=== PATIENT | female | born 1950 | race Caucasian/White ===

== ENCOUNTER 2019-07-11 06:18 | Day surgery (SDC) | payer BC, MEDICARE ==
[2019-07-10 09:29] VITALS: BMI 32.5
[~2019-07-11 06:18] MED LIST: DEXAMETHASONE SOD PHOSPHATE 10 MG/ML 1 ML VIAL IV ONE; HYDROmorphone 0.5 MG/0.5 ML SYRINGE IVP PRN; LACTATED RINGERS 1,000 ML IV SCH; ONDANSETRON 4 MG/2 ML VIAL IVP ONE; ONDANSETRON 4 MG/2 ML VIAL IVP PRN
[2019-07-11 07:06] VITALS: RESP 16; TEMP 98.1
[2019-07-11] MEDS ORDERED: LIDOCAINE 1% 20 ML VIAL (10MG/ML) FOR IV START INTRADERMA ONE (07:23)
[2019-07-11] MEDS ORDERED: KETAMINE 10 MG/ML 20 ML VIAL ONE (07:57)
[2019-07-11] MEDS ORDERED: MIDAZOLAM 2 MG/2 ML VIAL ONE (07:57)
[2019-07-11] MEDS ORDERED: LIDOCAINE 1% INJ 10MG/ML (20 ML MDV) ONE (07:57)
[2019-07-11] MEDS ORDERED: PROPOFOL 10 MG/ML 20 ML VIAL IV ONE (07:57)
[2019-07-11] MEDS ORDERED: fentaNYL (PF) 50 MCG/ML 2 ML AMP ONE (07:57)
[2019-07-11] MEDS ORDERED: LIDOCAINE 2% INJ 20 MG/ML SQ ONE ×2 (08:26)
[2019-07-11] MEDS ORDERED: BUPIVACAINE (PF) 0.5% 30 ML VIAL SQ ONE ×2 (08:26)
--- NOTE | 2019-07-11 09:05 | P.OP ---
Date of Procedure: 07/11/19 Postoperative Diagnosis: Right moderate to severe hallux rigidus Procedure(s) Performed: Same Implants: Implant arthroplasty first MTP joint, right foot Anesthesia: other (Sedation and local) Surgeon: Nixon Fletcher Chairman And Ceo #1: Isa Archer Estimated Blood Loss (ml): 5 IV fluids (ml): 500 Pathology: none sent Condition: stable Disposition: PACU Indications for Procedure: The patient is a very pleasant 69-year-old female who has had a long-standing history of problems with her right first MTP joint. Clinically she had a large dorsal osteophyte over the distal first metatarsal and pain with passive range of motion of the joint including pain with a grind test. Her x-rays showed moderate to severe arthritis. She was initially managed nonoperatively but failed to improve with conservative treatment. After failing over 6 months of nonsurgical treatment the patient requested surgery. Due to the fact that she had pain to her arc of range of motion particularly with grind test we discussed that she would not be a candidate for simple he performing a cheilectomy. We discussed both fusion and implant arthroplasty. We discussed the pros and cons of both treatments. We also discussed the recent orthopedic literature showing comparable outcomes 5 years with both procedures. The patient had a mild hallux valgus deformity but this was only minimally bothersome for her. She requested implant arthroplasty using Cartiva. She is well aware of the limitations of this. We discussed potential risks and complications of surgery including but not limited to risks from anesthesia, superficial infection, deep infection, delayed wound healing, superficial wound necrosis, deep wound necrosis, continued or worsened pain, worsening deformity, implant subsidence, dissatisfaction with surgery, need for further surgery including implant removal and fusion, DVT, PE, other medical complications, and possibly loss of life or limb. The patient voiced her understanding of all these are the most common complications other less common complications are possible. She provided her verbal and written consent to go forward with surgery. Operative Findings: The patient had complete cartilage loss from the first metatarsal head and large dorsal osteophytes off the distal first metatarsal and proximal phalanx base. Description of Procedure: The patient was identified in preoperative holding and the correct right leg was marked with my initials. I reviewed the consent form with the patient and her . All of their questions were answered. The patient was then brought back to the operating room by anesthesia. She was positioned on the OR table where a general anesthetic and preoperative antibiotics were given. All bony prominences were well-padded. The right leg was then prepped and draped in the standard sterile fashion after a tourniquet was applied to the proximal aspect of the right thigh. A timeout was performed identifying the correct patient, operative extremity, and procedure. A digital block was then performed using a mixture of half percent Marcaine and 2% lidocaine both without epinephrine. The leg was then elevated, exsanguinated with an Esmarch bandage, and the tourniquet was inflated to 250 mmHg. I began by marking out a straight dorsal incision to the first MTP joint. Skin incision was made with a scalpel and dissection was carried down carefully through the subcutaneous tissue taking care to not undermine the skin edges. The EHL tendon sheath was incised and the tendon was retracted laterally. The capsule over the first MTP joint was incised longitudinally. There was abundant inflamed synovium which was sharply excised. The joint was circumferentially exposed to allow full access to the metatarsal head. There was a large dorsal osteophyte over the first metatarsal which was carefully contoured with a rongeur. A paper cone maker was used to size the remaining first metatarsal head which was completely devoid of articular cartilage. The patient's anatomy seemed to better fit an 8 mm plug which was then dispensed. The guide was placed centrally over the first metatarsal head and a K wire was driven down the central aspect of the metatarsal. A reamer was used to carefully create a path over the K wire. The reamer and the K wire were removed. Deep appeared cavity was inspected and found to have a nice stable bony rim and was centrally located within the first metatarsal. The wound was thoroughly irrigated. An 8 mm Cartiva implant was then placed in the introducer sleeve. The final implant was then carefully press-fit into the bony cavity. The implant appeared to be stable and was sitting 2-3 mm proud. The wound was then thoroughly irrigated. The capsule was closed with a running 3-0 Monocryl stitch. The deep subcu was reapproximated using interrupted 3-0 Monocryl. The skin was closed using 3-0 nylon horizontal mattress stitches. The skin was reinforced with Brown quarter inch stretchy Steri-Strips. A sterile dressing consisting of Betadine soaked Adaptic, 4 x 4, and web roll was applied followed by an Sulaiman wrap. The tourniquet was let down. The patient was then transferred from the OR table to a gurney and brought to recovery having tolerated the procedure well. Plan: The patient is going to discharge home as an outpatient. She can weight- bear as tolerated in a boot. She can change her dressing in 2 days. She will need follow-up in the office in 2 weeks for wound check and likely suture removal of her incision is healed. She does not need x-rays at her 2 week visit.
[2019-07-11] MEDS ORDERED: HYDROcodone/APAP 5-325MG 1 EACH TAB PO ONE (09:35)
[2019-07-11 09:56] VITALS: BP 137/71; PULSE 73
== END 2019-07-11 10:28 | disposition home or self-care (01) ==
LOC: OR 06:18
PROVIDERS: ATTEND Orthopaedic Surgery
DX: M20.21 Hallux rigidus, right foot (principal); M19.071 Primary osteoarthritis, right ankle and foot; M19.072 Primary osteoarthritis, left ankle and foot; M20.22 Hallux rigidus, left foot; G47.33 Obstructive sleep apnea (adult) (pediatric); E78.00 Pure hypercholesterolemia, unspecified; F32.9 Major depressive disorder, single episode, unspecified; F39 Unspecified mood [affective] disorder; Z99.89 Dependence on other enabling machines and devices; Z91.040 Latex allergy status; Z98.890 Other specified postprocedural states; Z79.899 Other long term (current) drug therapy; Z88.8 Allergy status to other drugs, medicaments and biological substances; Z91.048 Other nonmedicinal substance allergy status; Z85.3 Personal history of malignant neoplasm of breast; Z97.3 Presence of spectacles and contact lenses; Z98.41 Cataract extraction status, right eye; Z98.42 Cataract extraction status, left eye; Z82.49 Family history of ischemic heart disease and other diseases of the circulatory system
CPT/HCPCS: 28291; C1713; J2001 ×2; J2250; J1100; J0690; J2405; J3010; J2704

== ENCOUNTER → 2019-07-29 | Outpatient (CLI) | payer MEDICARE ==
--- NOTE | 2019-08-02 12:31 | MM ---
Reason for exam: screening (asymptomatic). Last mammogram was performed 2 years and 1 month ago. History: Patient is postmenopausal and has history of breast cancer at age 63. Family history of premenopausal breast cancer in cousin, premenopausal breast cancer in sister, and breast cancer in grandmother. Malignant left mammotome panel of the left breast, May 03, 2013. Took estrogen for 3 years 5 months. Took progesterone for 3 years 5 months. Physical Findings: A clinical breast exam by your physician is recommended on an annual basis and results should be correlated with mammographic findings. MG 3D Screening Mammo W/Cad Bilateral CC and MLO view(s) were taken. Prior study comparison: July 03, 2017, mammogram, performed at [facility]. April 25, 2013, [facility] DIGITAL LEFT BREAST MAMMOGRAM w/CAD. April 23, 2013, bilateral digital screening mammo w/CAD. There are scattered fibroglandular densities. Finding #1: Architectural distortion in the lower quadrant, middle position of the left breast consistent with known excisional biopsy changes. Finding #2: There are typically benign round, diffuse/scattered calcifications in both breasts. There is no discrete abnormality. ASSESSMENT: Benign, BI-RAD 2 RECOMMENDATION: Routine screening mammogram of both breasts in 1 year.
== END | disposition home or self-care (01) ==
LOC: RADMAMWWP 13:35
PROVIDERS: ATTEND Internal Medicine
DX: Z12.31 Encounter for screening mammogram for malignant neoplasm of breast (principal)
CPT/HCPCS: 77063; 77067

== ENCOUNTER → 2020-07-01 | Outpatient (CLI) | payer MEDICARE ==
[2020-07-01 19:22] LABS: Protein, Total 6.4 g/dL (6.2-8.2)
[2020-07-01 19:38] LABS: Anti-Smith Ab Interp NEGATIVE (NEGATIVE)
[2020-07-06 12:32] LABS: Albumin 4.02 g/dL (3.80-4.90); Gamma Globulin 0.77 g/dL (0.70-1.50)
[2020-07-06 19:33] LABS: Arsenic Whole Blood <3 mcg/L (< 23); Mercury Whole Blood <2 mcg/L (< 11)
== END | disposition home or self-care (01) ==
LOC: LABWHC1 12:16
PROVIDERS: ATTEND Psychiatry & Neurology Neurology
DX: G62.9 Polyneuropathy, unspecified (principal); R76.8 Other specified abnormal immunological findings in serum
CPT/HCPCS: 36415; 82175; 82570; 82607; 83655; 83825; 84165; 85652; 86038; 86235; 86618

== ENCOUNTER → 2020-08-04 | Outpatient (CLI) | payer MEDICARE ==
--- NOTE | 2020-08-05 14:38 | MM ---
Reason for exam: screening (asymptomatic). Last mammogram was performed 1 year ago. History: Patient is postmenopausal and has history of breast cancer at age 63. Family history of premenopausal breast cancer in cousin, premenopausal breast cancer in sister, and breast cancer in grandmother. Malignant left mammotome panel of the left breast, May 03, 2013. Took estrogen for 3 years 5 months. Took progesterone for 3 years 5 months. Physical Findings: A clinical breast exam by your physician is recommended on an annual basis and results should be correlated with mammographic findings. MG 3D Screening Mammo W/Cad Bilateral CC and MLO view(s) were taken. Prior study comparison: July 29, 2019, bilateral MG 3d screening mammo w/cad. There are scattered fibroglandular densities. There are benign appearing diffuse, round calcifications bilaterally. No significant changes when compared with prior studies. ASSESSMENT: Benign, BI-RAD 2 RECOMMENDATION: Routine screening mammogram of both breasts in 1 year.
== END | disposition home or self-care (01) ==
LOC: RADMAMWWP 08:58
PROVIDERS: ATTEND Internal Medicine
DX: Z12.31 Encounter for screening mammogram for malignant neoplasm of breast (principal)
CPT/HCPCS: 77063; 77067

== ENCOUNTER → 2021-09-09 | Outpatient (CLI) | payer MEDICARE ==
--- NOTE | 2021-09-09 15:25 | BD ---
EXAMINATION TYPE: Axial Bone Density DATE OF EXAM: 09/09/2021 COMPARISON: 2013 CLINICAL HISTORY: Postmenopausal screening Height: 5 FT 4 IN Weight: 184 FRAX RISK QUESTIONS: Alcohol (3 or more units per day): NO Family History (Parent hip fracture): NO Glucocorticoids (More than 3mos): NO (Ex: prednisone, prednisolone, methylprednisolone, dexamethasone, and hydrocortisone). History of Fracture in Adulthood: NO Secondary Osteoporosis: 1. Type 1 Diabetes: NO 2. Hyperthyroidism: NO 3. Menopause before 45: NO 4. Malnutrition: NO 5. Chronic liver disease: NO Rheumatoid Arthritis: NO Current Tobacco Use: NO RISK FACTORS HISTORY OF: Surgery to Spine/Hip(right/left)/Wrist (right/left): NO Family History of Osteoporosis: NO Active: YES Diet low in dairy products/other sources of calcium: NO Postmenopausal woman: YES If Premenopausal, do you have irregular periods: NO Take estrogen and/or progesterone medications: NONE NOW Lost more than 2 inches in height since high school: NO Frequent falls: NO Poor Health: GOOD Hyperparathyroidism: NO Adrenal Insufficiency: NO MEDICATIONS: Additional Medications: ELVIN DELEON, Additional History: BREAST CANCER AGE 63 RADIATION EXAM MEASUREMENTS: Bone mineral densitometry was performed using the [employer] Your Head System. Bone mineral density as measured about the Lumbar spine is: ----- L1-L4(G/cm2): 1.478 T Score Values are as follows: ----- L2: 1.8 ----- L3: 2.6 ----- L4: 4.7 ----- L1-L4: 2.5 Bone mineral density has: INCREASED 2.9 % since study of: 2013 Bone mineral density about the R hip (g/cm2): 0.991 Bone mineral density about the L hip (g/cm2): 0.982 T Score values are as follows: -----R Neck: -0.3 -----L Neck: -0.4 -----R Total: 0.8 -----L Total: 1.1 Bone mineral density has: DECREASED -0.8 % since study of: 2013 IMPRESSION: Normal (Values between +1 and -1 indicate normal bone mass). Consider repeating this study in 5 year s or sooner if there is some new clinical indication. NOTE: T-SCORE=SD OF THE YOUNG ADULT MEAN.
--- NOTE | 2021-09-10 09:23 | MM ---
Reason for exam: screening (asymptomatic). Last mammogram was performed 1 year and 1 month ago. History: Patient is postmenopausal and has history of breast cancer at age 63. Family history of premenopausal breast cancer in cousin, premenopausal breast cancer in sister, and breast cancer in grandmother. Malignant left mammotome panel of the left breast, May 03, 2013. Radiation therapy of the left breast, 2012. Took estrogen for 3 years 5 months. Took progesterone for 3 years 5 months. Physical Findings: A clinical breast exam by your physician is recommended on an annual basis and results should be correlated with mammographic findings. MG 3D Screening Mammo W/Cad Bilateral CC, MLO, and XCCL view(s) were taken. Prior study comparison: August 04, 2020, bilateral MG 3d screening mammo w/cad. July 29, 2019, bilateral MG 3d screening mammo w/cad. There are scattered fibroglandular densities. Stable benign calcifications. There is no discrete abnormality. No significant changes when compared with prior studies. ASSESSMENT: Benign, BI-RAD 2 RECOMMENDATION: Routine screening mammogram of both breasts in 1 year.
== END | disposition home or self-care (01) ==
LOC: RADBDWWP 14:24
PROVIDERS: ATTEND Internal Medicine
DX: Z12.31 Encounter for screening mammogram for malignant neoplasm of breast (principal); N95.8 Other specified menopausal and perimenopausal disorders
CPT/HCPCS: 77063; 77067; 77080

== ENCOUNTER → 2023-10-19 | Outpatient (CLI) | payer MEDICARE ==
--- NOTE | 2023-10-23 00:09 | MM ---
Reason for Exam: Screening (asymptomatic). Last mammogram was performed 1 year(s) and 1 month(s) ago. Patient History: Menarche at age 16. First Full-Term at age 27. Postmenopausal. Breast cancer, left, age 63. Previous chest radiation therapy at age 63. Estrogen for 3 years, 5 months. Progesterone for 3 years, 5 months. 05/03/2013, Malignant Core Biopsy on the left side. 2012, Radiation Therapy on the left side. Maternal grandmother had breast cancer. Maternal cousin had breast cancer. Sister had breast cancer. Prior Study Comparison: 08/04/2020 Bilateral Screening Mammogram, [facility]. 09/09/2021 Bilateral Screening Mammogram, [facility]. 09/13/2022 Bilateral MG 3D screening mammo w/cad, [facility]. Tissue Density: There are scattered areas of fibroglandular density. Findings: Analyzed By CAD. Postsurgical and posttreatment changes left breast. Benign oil cyst calcifications bilaterally. There is no suspicious group of microcalcifications or new suspicious mass in either breast. Overall Assessment: Benign, BI-RAD 2 Management: Screening Mammogram of both breasts in 1 year. . Patient should continue monthly self-breast exams. A clinical breast exam by your physician is recommended on an annual basis. This exam should not preclude additional follow-up of suspicious palpable abnormalities. Note on Ban scores and lifetime risk: 1. A Ban score greater than 3% is considered moderate risk. If this is the case, consider specialist referral to assess eligibility for a risk reducing agent. 2. If overall lifetime risk for the development of breast cancer is 20% or higher, the patient may qualify for future screening with alternating mammogram and breast MRI. Electronically signed and approved by: Ivana Armstrong M.D. Radiologist
== END | disposition home or self-care (01) ==
LOC: RADMAMWWP 12:28
PROVIDERS: ATTEND Internal Medicine
DX: Z12.31 Encounter for screening mammogram for malignant neoplasm of breast (principal); Z78.0 Asymptomatic menopausal state; Z80.3 Family history of malignant neoplasm of breast
CPT/HCPCS: 77063; 77067